=== PATIENT | female | born 1955 | race Caucasian/White ===

== ENCOUNTER 2018-06-12 12:33 | Emergency (ER) | payer OTHER | END 2018-06-12 18:35 | disposition home or self-care (01) | LOC: FTE 12:33 | DX: M79.662 Pain in left lower leg (principal); J45.909 Unspecified asthma, uncomplicated; E66.01 Morbid (severe) obesity due to excess calories; Z00.00 Encounter for general adult medical examination without abnormal findings; Z68.36 Body mass index [BMI] 36.0-36.9, adult; Z85.9 Personal history of malignant neoplasm, unspecified | CPT/HCPCS: 93970; 99284-25 ==